=== PATIENT | female | born 1970 | race Caucasian/White ===

== ENCOUNTER 2017-03-17 11:49 | Emergency (ER) | payer BC, OTHER ==
[~2017-03-17] VITALS: Ht 162.6 cm; Wt 68.0 kg
[2017-03-17 11:51] VITALS: BP 155/91; PULSE 102; RESP 14; TEMP 97.8; O2SAT 98
--- NOTE | 2017-03-17 12:09 | PD ---
HPI Chief Complaint: Skin Problem Time Seen by Provider: 11:59 Travel History International Travel<30 days: No Contact w/Intl Traveler<30days: No Traveled to known affect area: No History of Present Illness HPI 47-year-old female presents to the emergency department sent by [facility] for evaluation of right third finger infection. Patient states she first noticed a bump to the right third finger on Monday, 6 days ago. She saw her primary care physician, Dr. German, on Monday. He performed incision and drainage at that time. However, she woke up on Monday and noticed that her entire right hand was swollen with a red streak up the forearm. She went to [facility] on Monday and digital block with incision and drainage was completed. She started Keflex when she first noticed the bump on Monday. Dr. German put her on doxycycline on Monday. While at [facility], she was told to stop the doxycycline and was to start clindamycin. She was called today by [facility] due to the culture returning which showed that it was resistant to clindamycin. The patient has the records with her. She was informed to come to [place] by [facility] due to as having a hand surgeon. She states that Dr. López is familiar with her case. She does state that her symptoms have much improved. The swelling in the red streak have completely went away. She reports just localized erythema over the wound. Patient denies any fevers or chills. She has no chronic medical problems. She does take Adderall, but has not taken in the past week. According to the susceptibility results by [facility], it is susceptible to erythromycin, the nozzle lid, vancomycin, Bactrim. However, she is allergic to Bactrim and states that it causes swelling to her face. Patient denies any loss of range of motion of the right third finger. She reports significant improvement since being seen on Monday at [facility]. PFSH Social History Alcohol Use: No Tobacco Use: No Substance Use: No Allergies-Medications (Allergen,Severity, Reaction): Coded Allergies: Sulfa (Sulfonamide Antibiotics) (Unverified Allergy, Severe, RESP ARREST, 03/17/17) Reported Meds & Prescriptions Reported Meds & Active Scripts Active Reported Clindamycin (Clindamycin HCl) 75 Mg Cap 75 Mg PO Q6H [place] (Hydrocodone-Acetaminophen) 5-325 mg Tab 1 Tab PO Q6H PRN Adderall (Amphetamine-Dextroamphetamine) 30 Mg Tab 30 Mg PO BID Avoid late evening doses. Space doses at least 4 to 6 hours if more than once/day dosing. Review of Systems Except as stated in HPI: all other systems reviewed are Neg Physical Exam Narrative GENERAL: Well-nourished, well-developed female patient, ambulatory. Afebrile. SKIN: Focused skin assessment warm/dry. Patient has 1 cm x 2 cm localized erythema over the dorsal aspect of the patient's right third finger over the PIP joint. No drainage. No swelling. No lymphangitis. HEAD: Normocephalic. Atraumatic. EYES: No scleral icterus. No injection or drainage. NECK: Supple, trachea midline. No JVD or lymphadenopathy. CARDIOVASCULAR: Regular rate and rhythm without murmurs, gallops, or rubs. Right radial pulse 2+. RESPIRATORY: Breath sounds equal bilaterally. No accessory muscle use. GASTROINTESTINAL: Abdomen soft, non-tender, nondistended. MUSCULOSKELETAL: No cyanosis, or edema. Patient has full range of motion of the right PIP joint without stiffness or pain. BACK: Nontender without obvious deformity. No CVA tenderness. Data Data Last Documented VS Vital Signs Date Time Temp Pulse Resp B/P (MAP) Pulse Ox O2 Delivery O2 Flow Rate FiO2 03/17/17 11:51 97.8 102 14 155/91 (112) 98 Orders Orders Complete Blood Count With Diff (03/17/17 13:29) Comprehensive Metabolic Panel (03/17/17 13:29) Iv Access Insert/Monitor (03/17/17 13:31) [facility] Pharm[facility] Information ([facility] (03/17/17 14:15) [facility] ([facility]) (03/17/17 14:08) Labs Laboratory Tests Test 03/17/17 14:15 White Blood Count 5.6 TH/MM3 Red Blood Count 4.00 MIL/MM3 Hemoglobin 10.5 GM/DL Hematocrit 32.6 % Mean Corpuscular Volume 81.4 FL Mean Corpuscular Hemoglobin 26.4 PG Mean Corpuscular Hemoglobin Concent 32.4 % Red Cell Distribution Width 14.3 % Platelet Count 325 TH/MM3 Mean Platelet Volume 7.9 FL Neutrophils (%) (Auto) 57.0 % Lymphocytes (%) (Auto) 32.5 % Monocytes (%) (Auto) 7.9 % Eosinophils (%) (Auto) 1.9 % Basophils (%) (Auto) 0.7 % Neutrophils # (Auto) 3.2 TH/MM3 Lymphocytes # (Auto) 1.8 TH/MM3 Monocytes # (Auto) 0.4 TH/MM3 Eosinophils # (Auto) 0.1 TH/MM3 Basophils # (Auto) 0.0 TH/MM3 CBC Comment DIFF FINAL Differential Comment Blood Urea Nitrogen 9 MG/DL Creatinine 0.80 MG/DL Random Glucose 116 MG/DL Total Protein 7.0 GM/DL Albumin 3.2 GM/DL Calcium Level 8.7 MG/DL Alkaline Phosphatase 61 U/L Aspartate Amino Transf (AST/SGOT) 32 U/L Alanine Aminotransferase (ALT/SGPT) 29 U/L Total Bilirubin 0.2 MG/DL Sodium Level 140 MEQ/L Potassium Level 3.4 MEQ/L Chloride Level 104 MEQ/L Carbon Dioxide Level 27.5 MEQ/L Anion Gap 9 MEQ/L Estimat Glomerular Filtration Rate 76 ML/MIN MDM Medical Decision Making Medical Screen Exam Complete: Yes Emergency Medical Condition: Yes Medical Record Reviewed: Yes Differential Diagnosis cellulitis vs. abscess vs. septic joint Narrative Course 47-year-old female presents to the emergency department for evaluation of infection to the right PIP joint. She was sent by [facility] due to resistance to oral antibiotics except Bactrim which she is allergic to. Overall, the patient states the symptoms have much improved since being seen at [facility] on Monday. She states that the hand surgeon, Dr. López, is familiar with her case. Dr. López is paged. I spoke to Dr. López who is in surgery. Information is communicated through circulating nurse. She states she hasn't seen the patient. She has no specific recommendations without seeing the patient. She can see the patient later, but has several surgeries before she could see her. My attending physician, Dr. Loomis, saw patient as well and agrees with [place] due to wound improving and multiple antibiotic resistance. CBC shows no acute abnormality. CMP shows no acute abnormality. Patient is given Tylenol and IV. She is instructed to follow-up with infectious disease. She is given the name and number to follow-up. She is return here for any acute worsening of symptoms. She verbalizes agreement and understanding. The patient was discharged in stable condition with instructions, including return instructions and follow up instructions. Diagnosis Primary Impression: Infected finger Referrals: Kylah Clark MD call for appointment Patient Instructions: Cellulitis (ED), General Instructions Additional Instructions: Follow up with Dr. Clark, infectious disease. Please call to make an appointment. Return for any acute, worsening of symptoms. Med/Other Pt SpecificInfo: No Change to Meds Disposition: 01 DISCHARGE HOME Condition: Stable Shannan Raza Mar 17, 2017 12:09
[2017-03-17] MEDS ORDERED: ADDE30TA PO (12:29)
[2017-03-17] MEDS ORDERED: NORC5TAB PO (12:29)
[2017-03-17] MEDS ORDERED: CLIN75CA PO (12:29)
--- NOTE | 2017-03-17 13:02 | PD ---
Data Data Last Documented VS Vital Signs Date Time Temp Pulse Resp B/P (MAP) Pulse Ox O2 Delivery O2 Flow Rate FiO2 03/17/17 11:51 97.8 102 14 155/91 (112) 98 Orders Orders Complete Blood Count With Diff (03/17/17 13:29) Comprehensive Metabolic Panel (03/17/17 13:29) Iv Access Insert/Monitor (03/17/17 13:31) [facility] Pharm[facility] Information ([facility] (03/17/17 14:15) [facility] ([facility]) (03/17/17 14:08) Labs Laboratory Tests Test 03/17/17 14:15 White Blood Count 5.6 TH/MM3 Red Blood Count 4.00 MIL/MM3 Hemoglobin 10.5 GM/DL Hematocrit 32.6 % Mean Corpuscular Volume 81.4 FL Mean Corpuscular Hemoglobin 26.4 PG Mean Corpuscular Hemoglobin Concent 32.4 % Red Cell Distribution Width 14.3 % Platelet Count 325 TH/MM3 Mean Platelet Volume 7.9 FL Neutrophils (%) (Auto) 57.0 % Lymphocytes (%) (Auto) 32.5 % Monocytes (%) (Auto) 7.9 % Eosinophils (%) (Auto) 1.9 % Basophils (%) (Auto) 0.7 % Neutrophils # (Auto) 3.2 TH/MM3 Lymphocytes # (Auto) 1.8 TH/MM3 Monocytes # (Auto) 0.4 TH/MM3 Eosinophils # (Auto) 0.1 TH/MM3 Basophils # (Auto) 0.0 TH/MM3 CBC Comment DIFF FINAL Differential Comment Blood Urea Nitrogen 9 MG/DL Creatinine 0.80 MG/DL Random Glucose 116 MG/DL Albumin 3.2 GM/DL Calcium Level 8.7 MG/DL Aspartate Amino Transf (AST/SGOT) 32 U/L Alanine Aminotransferase (ALT/SGPT) 29 U/L Sodium Level 140 MEQ/L Potassium Level 3.4 MEQ/L Chloride Level 104 MEQ/L Carbon Dioxide Level 27.5 MEQ/L Anion Gap 9 MEQ/L Estimat Glomerular Filtration Rate 76 ML/MIN [facility] Medical Record Reviewed: Yes Supervised Visit with [place]AMA[place]: Yes Narrative Course I, Dr. Loomis, have reviewed the advance practice practitioner's documentation and am in agreement, met with the patient face to face, made the diagnosis, and the medical decision making was done by me. *My assessment and Findings: Patient has infection of the third right finger. No evidence of tendon involvement. Dalvance given here. Patient's ready for discharge. Follow up with ID. Diagnosis Primary Impression: Infected finger Referrals: Kylah Clark MD 2 days Additional Instruction: You have a choice when it comes to health care, and we are glad that you chose [email or web address]. Hopefully, we have met your expectations on today's visit. You are welcome to return to [email or web address] at any time, as we are committed to meeting the health care needs of our community. Med/Other Pt SpecificInfo: No Change to Meds Disposition: 01 DISCHARGE HOME Condition: Stable Randy Loomis MD Mar 17, 2017 13:02
[2017-03-17] MEDS ORDERED: DALBAVANCIN INJ 1,500 MG in DEXTROSE 5% IN WATE 500 ML INJ 500 ML IV STA ×2 (14:08)
[2017-03-17] MEDS ORDERED: MISCELLANEOUS PHARMACY INFORMATION XX ONE (14:15)
[2017-03-17 14:38] LABS: AUTOMATED NEUTROPHIL # 3.2 TH/MM3 (1.8-7.7); BASOPHIL % 0.7 % (0.0-2.0); EOSINOPHIL # 0.1 TH/MM3 (0-0.4); EOSINOPHIL % 1.9 % (0.0-4.0); HEMATOCRIT 32.6 % (35.0-46.0); HEMO FLAGS DIFF FINAL; LYMPH % 32.5 % (9.0-44.0); LYMPHOCYTE # 1.8 TH/MM3 (1.0-4.8); MEAN CELL VOLUME 81.4 FL (80.0-100.0); MEAN CORPUSCULAR HEMOGLOBIN 26.4 PG (27.0-34.0); MEAN CORPUSCULAR HGB CONC 32.4 % (32.0-36.0); MONO % 7.9 % (0.0-8.0); PLATELET COUNT 325 TH/MM3 (150-450); RED CELL DISTRIBUTION WIDTH 14.3 % (11.6-17.2); WHITE BLOOD COUNT 5.6 TH/MM3 (4.0-11.0)
[2017-03-17 15:02] LABS: ALT (GPT) 29 U/L (10-53); ANION GAP 9 MEQ/L (5-15); AST (GOT) 32 U/L (15-37); BICARBONATE 27.5 MEQ/L (21.0-32.0); BLOOD UREA NITROGEN 9 MG/DL (7-18); CHLORIDE 104 MEQ/L (98-107); GLOMERULAR FILTRATION RATE 76 ML/MIN (>89); POTASSIUM 3.4 MEQ/L (3.5-5.1); SODIUM (NA) 140 MEQ/L (136-145)
[2017-03-17 15:04] LABS: ALKALINE PHOSPHATASE 61 U/L (45-117); TOTAL BILIRUBIN ADULT 0.2 MG/DL (0.2-1.0)
== END 2017-03-17 17:19 | disposition home or self-care (01) ==
LOC: NEPC 11:49
DX: L08.9 Local infection of the skin and subcutaneous tissue, unspecified (principal); Z79.899 Other long term (current) drug therapy; Z88.2 Allergy status to sulfonamides
CPT/HCPCS: 80053; 85025; 96374; 99284; J0875; J7060